=== PATIENT | male | born 1980 | race Caucasian/White ===

== ENCOUNTER → 2017-07-17 | Outpatient (CLI) | payer OTHER ==
[~2017-07-17] MED LIST: LIDOCAINE 1% INJ 10MG/ML (20 ML MDV) ONE
--- NOTE | 2017-07-17 12:12 | CONS ---
CONSULTATION DATE OF SERVICE: 07/17/2017 A 37-year-old gentleman who has been evaluated in the [facility] for snoring, significant excessive daytime sleepiness and possible obstructive sleep apnea-hypopnea syndrome. HISTORY OF PRESENT ILLNESS/SLEEP-WAKE EVALUATION: Patient's usual sleep schedule from 9:10 pm until 6 am. Sometimes he has problem with falling asleep, has TV set in bedroom, sleeps in different positions. He drinks up to 20 ounces of coffee during the day. Wakes up from sleep 2 times with 1 episode of nocturia. He referred that he sometimes has difficulties to breathe through his nose and he has to breathe through his mouth open during the sleep, is very loud snoring. During the day, he feels sleepiness. Mulberry Sleepiness Scale significantly increased to 16. No history of hypnagogical hallucinations, sleep paralysis or cataplexy. PAST MEDICAL HISTORY: Basically negative. PAST SURGICAL HISTORY: Adenoidectomy. MEDICATIONS: None. SOCIAL HISTORY: Positive for smoking in the past for about 10-pack years. Quit about 7 years ago. Smoked 1 pack a day. Alcohol consumption occasional. FAMILY HISTORY: Positive for sleep apnea, snoring, headaches. REVIEW OF SYSTEMS: Awakenings from sleep, significant excessive daytime sleepiness, opening mouth during the sleep. PHYSICAL EXAM: A 37-year-old gentleman without distress. BP 118/72, HR 82, RR 16, height 6, 6, weight 220, BMI 24.5. Neck 14-1/2 inches in circumference. Temperature 97.7, oxygen saturation on room air 97% OROPHARYNX: Moderately low position of soft palate, shows short distance between soft palate and posterior pharyngeal wall. Some asymmetry of the soft palate. Restriction of the nasal breathing on the left side. Neck Supple, no JVD. Thyroid is not palpable. LUNGS Clear to percussion and to auscultation. Good air exchange. No wheezing or rhonchi. HEART S1, S2 regular. No murmurs, gallops, or rubs. ABDOMEN Soft and nontender. Bowel sounds are present. No organomegaly appreciated. EXTREMITIES No clubbing or cyanosis. MANAGER BUSINESS CONTINUITY Awake, alert, and oriented X3. Cranial nerves 2 to 7 intact. There is no fasciculation or atrophy. noted. No focal deficits observed. IMPRESSION: 1. Snoring, awakenings from sleep with nocturia. The patient opens his mouth during the sleep. Low position of soft palate. Some restriction of nasal breathing, loud snoring, obstructive sleep apnea-hypopnea syndrome. 2. Significant excessive daytime sleepiness. [place]berry Sleepiness Scale increased to 16. In case if sleep study will be negative for obstructive sleep apnea-hypopnea syndrome, patient needs to be evaluated for possibility of a type of hypersomnia. 3. Status post adenoidectomy. 4. Possible nasal septum deviation with restriction of nasal breathing on the left side. PLAN: 1. Polysomnography for evaluation of patient's breathing during sleep. 2. CPAP/BiPAP titration if sleep study confirms obstructive sleep apnea-hypopnea syndrome. 3. Preferable position during sleep on the side. 4. No driving if patient feels any sleepiness. Patient is aware of civil and criminal liability for unsafe driving. 5. I will see patient for follow up visit to explain results of testing and following plan. Thank you very much for referring this patient for consultation. Sincerely, Don Lr MD, PhD, FAASM Diplomat of [employer] Link And Link Knitting Machine Operator of [facility] [place] MMODL / CATN: [id number] /
== END ==
LOC: SLEEP 10:23
PROVIDERS: ATTEND Internal Medicine
DX: G47.10 Hypersomnia, unspecified (principal); Z90.89 Acquired absence of other organs; Z87.891 Personal history of nicotine dependence
CPT/HCPCS: 99211

== ENCOUNTER → 2017-08-14 | Outpatient (CLI) | payer OTHER ==
--- NOTE | 2017-08-14 11:31 | PN ---
PROGRESS NOTE A 37-year-old gentleman has been followed in [facility] to discuss results of polysomnogram and multiple sleep latency test. I discussed results of sleep studies with patient in details. Polysomnogram did not show any significant abnormalities of respiration during the sleep. Apnea-hypopnea index only 0.2, lowest oxygen level 93.4%, normal distributions of sleep stages. Four periods of REM sleep documented. Normal amount of delta sleep. Multiple sleep latency test on the following day consisted from 5 naps trials. The patient fell asleep on 3 trials and did not fall asleep on 2 trials. Mean sleep latency was 13.6 minutes, which is more than 10 and does not indicate any significant sleepiness. No sleep onset REM periods have been documented during the naps, which is normal. MEDICATIONS: None. PHYSICAL EXAM: Patient in no distress. BP 105/68, HR 64, RR 16, oxygen saturation on room air 100%. Weight 220, height 6 foot 6, BMI 25.5. Oropharynx moderately low position of soft palate. Neck Supple, no JVD. Thyroid is not palpable. LUNGS Clear to percussion and to auscultation. Good air exchange. No wheezing or rhonchi. HEART S1, S2 regular. No murmurs, gallops, or rubs. ABDOMEN Soft and nontender. Bowel sounds are present. No organomegaly appreciated. EXTREMITIES No clubbing or cyanosis. RETREAD SUPERVISOR Awake, alert, and oriented X3. Cranial nerves 2 to 7 intact. There is no fasciculation or atrophy. noted. No focal deficits observed. IMPRESSION: 1. No significant respiratory abnormalities have been documented during the sleep study. Normal oxygenation during the sleep. 2. Normal mean sleep latency during multiple sleep latency test. No sleep onset REM periods which is against any possibility of hypersomnia. 3. Sinus bradycardia during the sleep study. 4. No significant periodic limb movements have been documented during the sleep study. PLAN: 1. Sleep hygiene with regular time in bed for 8 hours. 2. No driving if feeling sleepiness. Thank you very much for allowing me to participate in the management of your patient. Sincerely, Don Lr MD, PhD, FAASM Diplomat of [employer] Designer And Patternmaker of [facility] [place] MMODL / IJN: [id number] /
== END | disposition home or self-care (01) ==
LOC: SLEEP 10:25
PROVIDERS: ATTEND Internal Medicine
DX: G47.30 Sleep apnea, unspecified (principal); R00.1 Bradycardia, unspecified